=== PATIENT | male | born 1950 ===

== ENCOUNTER 2017-04-02 13:10 | Emergency (ER) | payer SELFPAY ==
[2017-04-02] MEDS ORDERED: Sodium Chloride 0.9% 1,000 ML IV ONE (13:55)
[2017-04-02 14:14] LABS: BASO % 0.3 % (0.0-2.0); EOS # 1.1 K/uL (0.0-0.7); EOS % 20.5 % (0.0-4.0); LYMPH # 0.9 K/uL (1.0-4.3); LYMPH % 17.4 % (20.0-40.0); MEAN CELL VOLUME 88.1 fL (80.0-94.0); MEAN CORPUSCULAR HEMOGLOBIN 29.5 pg (27.0-31.0); MEAN CORPUSCULAR HGB CONC 33.4 g/dL (33.0-37.0); MEAN PLATELET VOLUME 7.2 fL (7.2-11.7); MONO # 0.6 K/uL (0.0-0.8); MONO % 10.5 % (0.0-10.0); PLATELET COUNT 171 K/uL (130-400); RED CELL DISTRIBUTION WIDTH 13.9 % (11.5-14.5); WHITE BLOOD COUNT 5.3 K/uL (4.8-10.8)
[2017-04-02 14:27] LABS: ALKALINE PHOSPHATASE 109 U/L (38-126); ALT/SGPT 47 U/L (21-72); AST/SGOT 22 U/L (17-59); BILIRUBIN,TOTAL 0.3 mg/dL (0.2-1.3); BLOOD UREA NITROGEN 19 mg/dL (9-20); CALCIUM 8.5 mg/dl (8.6-10.4); CARBON DIOXIDE 33 mmol/L (22-30); CHLORIDE 97 mmol/L (98-107); GFR AFRICAN-AMERICAN > 60; GLUCOSE,RANDOM 121 mg/dL (75-110); MAGNESIUM 1.7 mg/dL (1.6-2.3); POTASSIUM 4.3 mmol/L (3.6-5.2); SODIUM 135 mmol/L (132-148); TOTAL PROTEIN 7.9 g/dL (6.3-8.3)
[2017-04-02 14:55] LABS: BASOPHIL 1 % (0-2); EOSINOPHIL 24 % (0-4); NEUTROPHIL 46 % (50-75); TOTAL CELLS COUNTED 100
[2017-04-02] MEDS ORDERED: Sodium Chloride 0.9% 1,000 ML ONE (15:00)
--- NOTE | 2017-04-02 15:11 | CT ---
PROCEDURE: CT HEAD WITHOUT CONTRAST. HISTORY: Dizziness. h/o Lung CA with brain mets. COMPARISON: None available. TECHNIQUE: Axial computed tomography images were obtained through the head/brain without intravenous contrast. Radiation dose: Total exam DLP = 854.17 mGy-cm. This CT exam was performed using one or more of the following dose reduction techniques: Automated exposure control, adjustment of the mA and/or kV according to patient size, and/or use of iterative reconstruction technique. FINDINGS: HEMORRHAGE: No intracranial hemorrhage. BRAIN: Diffuse atrophy with prominence of the ventricles and sulci noted. Scattered periventricular and subcortical white matter hypodensities, which are nonspecific, but often seen with chronic microvascular ischemic disease. 14 mm left frontal parietal lobe hyperdense lesion suspicious for neoplasm. Extensive left-sided probable vasogenic edema. Please note that MRI with diffusion imaging is more sensitive in the detection of acute ischemic event. VENTRICLES: No hydrocephalus. CALVARIUM: Unremarkable. PARANASAL SINUSES: Unremarkable as visualized. No significant inflammatory changes. MASTOID AIR CELLS: Unremarkable as visualized. No inflammatory changes. OTHER FINDINGS: Tiny calcifications or ossific densities within the soft tissues near the right temporomandibular joint. IMPRESSION: 14 mm left frontal parietal lobe hyperdense lesion suspicious for neoplasm. Extensive left-sided probable vasogenic edema. Findings consistent with provided history of metastatic disease. Recommend MRI without and with IV contrast for further evaluation if indicated, as noncontrast head CT is limited in evaluation for metastases. Tiny calcifications or ossific densities within the soft tissues near the right temporomandibular joint.
--- NOTE | 2017-04-02 15:13 | RAD ---
PROCEDURE: CHEST RADIOGRAPH, 1 VIEW HISTORY: Dizzy. h/o lung CA with lobectomy? COMPARISON: None available. FINDINGS: LUNGS: Smaller right lung volume consistent with prior partial right lung resection. Trachea deviated towards the right with right paratracheal surgical clips -associated right paratracheal soft tissue a amorphous density -of unknown chronicity Clear left lung possible 2 to 3 mm left upper lobe granuloma PLEURA: No pneumothorax or pleural fluid seen. Right medial upper lobe paratracheal pleural-parenchymal soft tissue opacity with overlying clips - chronicity of this appearance -Unknown CARDIOVASCULAR: Normal. OSSEOUS STRUCTURES: No significant abnormalities. VISUALIZED UPPER ABDOMEN: Normal. OTHER FINDINGS: None. IMPRESSION: Partial right lung resection - inferred as expectant normal postop changes without the benefit of priors to assess for stability No peripheral consolidations
--- NOTE | 2017-04-02 15:22 | C.PDOC ---
Time Seen by Provider: 04/02/17 13:37 Chief Complaint (Nursing): Dizziness/Lightheaded History Per: Patient, Family (Daughter) Onset/Duration Of Symptoms: Days (1), Intermittent Episodes Current Symptoms Are (Timing): Better Associated Symptoms Preceding Syncopal Episode: Vertigo (?) Fall Associated With With Symptoms: No Severity: Moderate Additional History Per: Prior Records - Symptoms Of CVA Recent Head Trauma: No Past Medical History Reviewed: Historical Data, Nursing Documentation, Vital Signs Vital Signs: Last Vital Signs Temp 97.3 F L 04/02/17 13:14 Pulse 69 04/02/17 14:43 Resp 14 04/02/17 14:43 BP 140/78 04/02/17 14:43 Pulse Ox 99 04/02/17 14:43 - Medical History PMH: Malignancy (Lung, Metastatic to brain), Seizures Other Surgeries: Right lung partial resection. Family History: States: Unknown Family Hx - Social History Hx Tobacco Use: No (Quit 1 year ago) Hx Alcohol Use: No Hx Substance Use: No - Immunization History Hx Tetanus Toxoid Vaccination: No Hx Influenza Vaccination: No Hx Pneumococcal Vaccination: No Review Of Systems Except As Marked, All Systems Reviewed And Found Negative. Constitutional: Negative for: Fever Cardiovascular: Negative for: Chest Pain Respiratory: Negative for: Shortness of Breath, Hemoptysis Gastrointestinal: Negative for: Vomiting, Abdominal Pain, Diarrhea Genitourinary: Negative for: Dysuria Musculoskeletal: Negative for: Neck Pain Skin: Negative for: Rash Neurological: Positive for: Dizziness. Negative for: Weakness, Numbness, Incoordination, Change in Speech, Confusion, Seizures, Altered Mental Status, Headache Physical Exam - Physical Exam Appears: Non-toxic, No Acute Distress Skin: Normal Color, Warm, Dry, No Rash Head: Atraumatic, Normacephalic Eye(s): bilateral: PERRL, EOMI Ear(s): Bilateral: Normal Neck: Normal ROM, Supple Cardiovascular: Rhythm Regular Respiratory: Normal Breath Sounds, No Accessory Muscle Use Gastrointestinal/Abdominal: Soft, No Tenderness Back: No CVA Tenderness Extremity: Normal ROM, No Pedal Edema, No Calf Tenderness Neurological/Psych: Oriented x3, Normal Speech, Normal Cognition, No Cerebellar Signs, Normal Motor, Normal Sensation ED Course And Treatment - Laboratory Results Result Diagrams: 04/02/17 14:09 04/02/17 14:09 Interpretation Of Abnormal: Dilantin level mildly subtherapeutic ECG: Interpreted By Me, Viewed By Me ECG Rhythm: Sinus Rhythm ECG Interpretation: No Acute Changes Rate From EC O2 Sat by Pulse Oximetry: 99 Pulse Ox Interpretation: Normal - Radiology CXR: Viewed By Me, Read By Radiologist CXR Interpretation: Yes: No Acute Disease, Other (Partial right lung resection - inferred as expectant normal postop changes without the benefit of priors to assess for stability) - CT Scan/US CT Head Other Rad Studies (CT/US): Read By Radiologist, Radiology Report Reviewed CT/US Interpretation: IMPRESSION: 14 mm left frontal parietal lobe hyperdense lesion suspicious for neoplasm. Extensive left-sided probable vasogenic edema. Findings consistent with provided history of metastatic disease. Recommend MRI without and with IV contrast for further evaluation if indicated, as noncontrast head CT is limited in evaluation for metastases. Tiny calcifications or ossific densities within the soft tissues near the right temporomandibular joint. Progress - Interventions Interventions:: Observation, Intravenous fluid - Medications Administered Oral: Other (Dilantin) - Data Reviewed Data Reviewed: Lab, Diagnostic imaging, EKG, Old records - Patient Status Patient status: Mostly improved - Continuity of Care Discussed patient case with:: Patient, Family-HIPPA compliant, ED Nurse - Patient Plan Patient Plan: Discharge, F/U with PCP, Continue present meds Medical Decision Making Medical Decision Making: Pt is with known brain mets. He is on Dexamethasone. Disposition Counseled Patient/Family Regarding: Studies Performed, Diagnosis, Need For Followup - Disposition Referrals: [facility] [Outside] Maame Regan MD [Staff Provider] - Disposition: HOME/ ROUTINE Disposition Time: 15:24 Condition: IMPROVED Additional Instructions: Follow up in the clinic and with an Oncologist as soon as possible for further evaluation and treatment. Return to the ER if you develop weakness, numbness, vomiting, headache, confusion, worsening of symptoms or if you have any other concerns. Instructions: Dizziness (ED) Forms: [employer] (Northern Irish) Print Language: INDIAN - Clinical Impression Clinical Impression: Dizziness, Lung cancer metastatic to brain
[2017-04-02 15:34] VITALS: BP 118/75; PULSE 72; RESP 16; TEMP 98.1; O2SAT 98
--- NOTE | 2017-04-03 23:09 | CARD ---
APPROVED REPORT EKG Measurement Heart [id number] <Conclusion> Normal sinus rhythm Normal ECG
== END 2017-04-02 15:46 | disposition home or self-care (01) ==
LOC: C.ER 13:10
DX: C34.90 Malignant neoplasm of unspecified part of unspecified bronchus or lung (principal); C79.31 Secondary malignant neoplasm of brain; R42 Dizziness and giddiness
CPT/HCPCS: 70450; 71010; 80053; 80185; 83735; 84484; 85025; 85610; 85730; 93005; 96361; 96374; 99285; C9113; J7040